=== PATIENT | female | born 1990 | race Caucasian/White ===

== ENCOUNTER 2018-05-01 06:24 | Emergency (ER) | payer BC ==
--- NOTE | 2018-05-01 07:06 | EDM.PDOC ---
ED HPI GENERAL MEDICAL PROBLEM - General Chief Complaint: Upper Extremity Injury/Pain Stated Complaint: RIGHT SHOULDER PAIN Time Seen by Provider: 05/01/18 07:06 Source of Information: Reports: Patient History Limitations: Reports: No Limitations - History of Present Illness INITIAL COMMENTS - FREE TEXT/NARRATIVE: History of present illness: []Patient sneezed 3 days ago and pulled a muscle in her right upper back then proceeded to go to the gym and workout. That worsen the pain aggressively worsened since it began. Patient states it hurts to breathe or move. She denies any fevers, chills, cough or shortness of breath. Review of systems: As per history of present illness and below otherwise all systems reviewed and negative. Past medical history: As per history of present illness and as reviewed below otherwise noncontributory. Surgical history: As per history of present illness and as reviewed below otherwise noncontributory. Social history: No reported history of drug or alcohol abuse. Family history: As per history of present illness and as reviewed below otherwise noncontributory. Physical exam: General: Well developed, well nourished in NAD HEENT: Atraumatic, normocephalic, pupils reactive, negative for conjunctival pallor or scleral icterus, mucous membranes moist, throat clear, neck supple, nontender, trachea midline. Lungs: Clear to auscultation, breath sounds equal bilaterally, patient is tender to palpation in the posterior upper chest/back over and inferior to right shoulder blade and with movement of her right upper extremity Heart: S1S2, regular, negative for clicks, rubs, or JVD. Abdomen: Soft, nondistended, nontender. Negative for masses or hepatosplenomegaly. Negative for costovertebral tenderness. Pelvis: Stable nontender. Genitourinary: Deferred. Rectal: Deferred. Extremities: Atraumatic, negative for cords or calf pain. Neurovascular unremarkable. Neuro: Awake, alert, oriented. Cranial nerves II through XII unremarkable. Cerebellum unremarkable. Motor and sensory unremarkable throughout. Exam nonfocal. Skin:warm and dry Diagnostics: Chest x-ray negative for infiltrate, pneumothorax or fracture Therapeutics: Offered Toradol she refused, Flexeril and tramadol given by mouth ED Course: Unremarkable Impression: Muscle spasm right upper back Prescriptions: Tramadol, Flexeril Plan: Use ice and heat for pain and meds as directed, follow up with primary care return if symptoms worsen or change. Definitive disposition and diagnosis as appropriate pending reevaluation and review of above. right upper back Pain Score (Numeric/FACES): 9 - Related Data Allergies Allergy/AdvReac Type Severity Reaction Status Date / Time allopurinol Allergy Itching Verified 05/01/18 06:43 oxycodone Allergy Hives Verified 05/01/18 06:43 Penicillins Allergy Anaphylactic Verified 05/01/18 06:43 Shock Home Meds: Home Meds Cyclobenzaprine [Flexeril] 10 mg PO BID PRN #12 tab 05/01/18 [Rx] Imatinib Mesylate [Gleevec] 400 mg PO DAILY 05/01/18 [History] traMADol HCl [Tramadol HCl] 50 mg PO Q6H PRN #16 tablet 05/01/18 [Rx] Past Medical History HEENT History: Reports: None Cardiovascular History: Reports: None Respiratory History: Reports: None Gastrointestinal History: Reports: None Genitourinary History: Reports: None [employer] History: Reports: Musculoskeletal History: Reports: None Neurological History: Reports: None Psychiatric History: Reports: Bipolar Endocrine/Metabolic History: Reports: None Hematologic History: Reports: Other (See Below) Other Hematologic History: Pernicous Anemia. CML Immunologic History: Reports: None Oncologic (Cancer) History: Reports: Leukemia Dermatologic History: Reports: None - Infectious Disease History Infectious Disease History: Reports: None - Past Surgical History Head Surgeries/Procedures: Reports: None Social & Family History - Family History Family Medical History: Noncontributory - Tobacco Use Smoking Status *Q: Never Smoker - Caffeine Use Caffeine Use: Reports: Coffee - Recreational Drug Use Recreational Drug Use: No Review of Systems - Review of Systems Review Of Systems: ROS reveals no pertinent complaints other than HPI. ED EXAM, GENERAL - Physical Exam Exam: See Below (See history of present illness) Course - Vital Signs Last Recorded V/S: Last Vital Signs Temp 97.8 F 05/01/18 06:44 Pulse 93 05/01/18 06:44 Resp 18 05/01/18 06:44 BP 109/74 05/01/18 06:44 Pulse Ox 98 05/01/18 06:44 - Orders/Labs/Meds Orders: Active Orders 24 hr Category Date Time Status Chest 2V [CR] Stat Exams 05/01/18 07:11 Taken Meds: Medications Discontinued Medications Generic Name Dose Route Start Last Admin Trade Name Freq PRN Reason Stop Dose Admin Cyclobenzaprine HCl 10 mg 05/01/18 07:12 05/01/18 07:54 Flexeril PO 05/01/18 07:13 10 mg ONETIME ONE Administration Ketorolac Tromethamine 60 mg 05/01/18 07:12 05/01/18 07:55 Toradol IM 05/01/18 07:13 Not Given ONETIME ONE Tramadol HCl 50 mg 05/01/18 08:16 05/01/18 08:20 Ultram PO 05/01/18 08:17 50 mg ONETIME ONE Administration Departure - Departure Time of Disposition: 08:22 Disposition: Home, Self-Care 01 Condition: Good Clinical Impression: Muscle spasm of right shoulder - Discharge Information *PRESCRIPTION DRUG MONITORING PROGRAM REVIEWED*: No *COPY OF PRESCRIPTION DRUG MONITORING REPORT IN PATIENT KRIS: No Prescriptions: Cyclobenzaprine [Flexeril] 10 mg PO BID PRN #12 tab PRN Reason: Pain traMADol HCl [Tramadol HCl] 50 mg PO Q6H PRN #16 tablet PRN Reason: Pain Referrals: PCP,None [Primary Care Provider] - Forms: ED Department Discharge Additional Instructions: The following information is given to patients seen in the emergency department who are being discharged to home. This information is to outline your options for follow-up care. We provide all patients seen in our emergency department with a follow-up referral. The need for follow-up, as well as the timing and circumstances, are variable depending upon the specifics of your emergency department visit. If you don't have a primary care physician on staff, we will provide you with a referral. We always advise you to contact your personal physician following an emergency department visit to inform them of the circumstance of the visit and for follow-up with them and/or the need for any referrals to a consulting specialist. The emergency department will also refer you to a specialist when appropriate. This referral assures that you have the opportunity for follow-up care with a specialist. All of these measure are taken in an effort to provide you with optimal care, which includes your follow-up. Under all circumstances we always encourage you to contact your private physician who remains a resource for coordinating your care. When calling for follow-up care, please make the office aware that this follow-up is from your recent emergency room visit. If for any reason you are refused follow-up, please contact the [facility] Emergency Department at and asked to speak to the emergency department charge nurse. Take tramadol Flexeril as directed, use heat and ice for comfort follow-up with primary care and return if symptoms worsen or change. [facility] [address] [place] [id number] - My Orders Last 24 Hours: My Active Orders 05/01/18 07:11 Chest 2V [CR] Stat - Assessment/Plan Last 24 Hours: My Active Orders 05/01/18 07:11 Chest 2V [CR] Stat
[2018-05-01] MEDS ORDERED: Cyclobenzaprine 10 MG Tab PO ONE (07:12)
[2018-05-01] MEDS: Ketorolac 60 MG/2 ML SDV IM ONE ×2 (07:54→07:55)
[2018-05-01] MEDS ORDERED: traMADol 50 MG Tab PO ONE (08:16)
--- NOTE | 2018-05-03 09:41 | CR ---
EXAM DATE: 05/01/18 PATIENT'S AGE: 27 Patient: REGINO SPENCE Facility: [place], [place] Site . Site : 1990 Study: XRay Chest [id number]/16/2018 7:54:32 AM Ordering Physician: Doctor Hill Final Report: INDICATION: Right upper back pain after forceful sneezing TECHNIQUE: PA and lateral chest x-ray. FINDINGS: Mild increased soft tissue density in the right paraspinal region from the suprahilar region to the mid heart which is nonspecific. This could be related to a vascular shadow but I cannot be certain of this. This is not have the typical appearance of residual thymic tissue. Heart size normal. Lungs clear without infiltrate or consolidation. No pneumothorax. Chest otherwise negative. Dictated by Malcom Arriola MD @ May 01 2018 8:13AM (Electronic Signature) Report Signed by Proxy. SHANIQUA
== END 2018-05-01 08:45 | disposition home or self-care (01) ==
LOC: MW.ED 06:24
DX: M62.830 Muscle spasm of back (principal); Z88.8 Allergy status to other drugs, medicaments and biological substances; Z88.0 Allergy status to penicillin
CPT/HCPCS: 71046; 99283; A9270; J1885

== ENCOUNTER 2018-05-10 15:15 | Emergency (ER) | payer BC ==
[2018-05-10] MEDS ORDERED: Ketorolac 60 MG/2 ML SDV IM ONE (15:37)
--- NOTE | 2018-05-10 15:44 | EDM.PDOC ---
ED HPI GENERAL MEDICAL PROBLEM - General Chief Complaint: Back Pain or Injury Stated Complaint: BACK PAIN Time Seen by Provider: 05/10/18 15:18 - History of Present Illness INITIAL COMMENTS - FREE TEXT/NARRATIVE: HISTORY AND PHYSICAL: History of present illness: The patient is a 27-year-old female who presents to the ER with upper right-sided back pain. The patient was seen in the ER on for muscle spasm. A x-ray was done that did not show any abnormalities of the heart, lungs or bones. She was sent home on tramadol and Flexeril. The patient stopped taking those medications on Wednesday05/04/18 and instead was seeing a chiropractor and taking ibuprofen. Last chiropractor session was yesterday. The patient woke up at 2 AM this morning with 10 and 10, sharp muscle spasm on the right thoracic muscles and decreased mobility in the right upper extremity due to pain. The patient has no shooting pains, numbness/ tingling to the extremities. [] Review of systems: As per history of present illness and below otherwise all systems reviewed and negative. Past medical history: As per history of present illness and as reviewed below otherwise noncontributory. Surgical history: As per history of present illness and as reviewed below otherwise noncontributory. Social history: No reported history of drug or alcohol abuse. Family history: As per history of present illness and as reviewed below otherwise noncontributory. Physical exam: HEENT: Atraumatic, normocephalic, pupils reactive, negative for conjunctival pallor or scleral icterus, mucous membranes moist, throat clear, neck supple, nontender, trachea midline. Lungs: Clear to auscultation, breath sounds equal bilaterally, chest nontender. Heart: S1S2, regular, negative for clicks, rubs, or JVD. Abdomen: Soft, nondistended, nontender. Negative for masses or hepatosplenomegaly. Negative for costovertebral tenderness. Pelvis: Stable nontender. Genitourinary: Deferred. Rectal: Deferred. Extremities: Atraumatic, negative for cords or calf pain. Neurovascular unremarkable. MSK- tenderness to the paraspinal muscles, right side T3-T6, strength testing elicits pain in the right upper back Neuro: Awake, alert, oriented. Cranial nerves II through XII unremarkable. Cerebellum unremarkable. Motor and sensory unremarkable throughout. Exam nonfocal. Diagnostics: [] Therapeutics: [IM Toradol] Impression: [right thoracic muscle spasm] Plan: [Patient's pain and mobility improved with toradol dose. Discharge home with flexeril and diclofenac. Patient should apply ice/heat to the area. Recommend establishing and follow with PCP .] Definitive disposition and diagnosis as appropriate pending reevaluation and review of above. Right Upper Back Pain Score (Numeric/FACES): 8 - Related Data Allergies Allergy/AdvReac Type Severity Reaction Status Date / Time allopurinol Allergy Itching Verified 05/10/18 15:28 oxycodone Allergy Hives Verified 05/10/18 15:28 Penicillins Allergy Anaphylactic Verified 05/10/18 15:28 Shock Home Meds: Home Meds Imatinib Mesylate [Gleevec] 400 mg PO DAILY 05/01/18 [History] Cyclobenzaprine [Flexeril] 10 mg PO TID PRN 7 Days #21 tab 05/10/18 [Rx] Diclofenac Sodium [Voltaren] 50 mg PO BID 7 Days #14 tab.ec 05/10/18 [Rx] Past Medical History HEENT History: Reports: None Cardiovascular History: Reports: None Respiratory History: Reports: None Gastrointestinal History: Reports: None Genitourinary History: Reports: None [employer] History: Reports: Musculoskeletal History: Reports: None Neurological History: Reports: None Psychiatric History: Reports: Bipolar, Other (See Below) Other Psychiatric History: cyclothymia Endocrine/Metabolic History: Reports: None Hematologic History: Reports: Other (See Below) Other Hematologic History: Pernicous Anemia. CML Immunologic History: Reports: None Oncologic (Cancer) History: Reports: Leukemia Dermatologic History: Reports: None - Infectious Disease History Infectious Disease History: Reports: None - Past Surgical History Head Surgeries/Procedures: Reports: None Social & Family History - Family History Family Medical History: Noncontributory - Tobacco Use Smoking Status *Q: Never Smoker Second Hand Smoke Exposure: No - Caffeine Use Caffeine Use: Reports: Coffee, Soda - Recreational Drug Use Recreational Drug Use: No ED ROS GENERAL - Review of Systems Review Of Systems: See Below (See dictation) ED EXAM, UPPER BACK/NECK PAIN - Physical Exam Exam: See Below (CC dictation) Course - Vital Signs Last Recorded V/S: Last Vital Signs Temp 97.8 F 05/10/18 15:22 Pulse 97 05/10/18 15:22 Resp 16 05/10/18 15:22 BP 108/73 05/10/18 15:22 Pulse Ox 96 05/10/18 15:22 - Orders/Labs/Meds Meds: Medications Discontinued Medications Generic Name Dose Route Start Last Admin Trade Name Freq PRN Reason Stop Dose Admin Ketorolac Tromethamine 60 mg 05/10/18 15:37 05/10/18 15:41 Toradol IM 05/10/18 15:38 60 mg ONETIME ONE Administration Departure - Departure Time of Disposition: 16:16 Disposition: Home, Self-Care 01 Clinical Impression: Muscle spasm of right shoulder - Discharge Information *PRESCRIPTION DRUG MONITORING PROGRAM REVIEWED*: No *COPY OF PRESCRIPTION DRUG MONITORING REPORT IN PATIENT KRIS: No Prescriptions: Cyclobenzaprine [Flexeril] 10 mg PO TID PRN 7 Days #21 tab PRN Reason: Muscle Spasm Diclofenac Sodium [Voltaren] 50 mg PO BID 7 Days #14 tab.ec Instructions: Muscle Cramps and Spasms, [id number] Referrals: PCP,None [Primary Care Provider] - Forms: ED Department Discharge Additional Instructions: My general discharge The following information is given to patients seen in the emergency department who are being discharged to home. This information is to outline your options for follow-up care. We provide all patients seen in our emergency department with a follow-up referral. The need for follow-up, as well as the timing and circumstances, are variable depending upon the specifics of your emergency department visit. If you don't have a primary care physician on staff, we will provide you with a referral. We always advise you to contact your personal physician following an emergency department visit to inform them of the circumstance of the visit and for follow-up with them and/or the need for any referrals to a consulting specialist. The emergency department will also refer you to a specialist when appropriate. This referral assures that you have the opportunity for follow-up care with a specialist. All of these measure are taken in an effort to provide you with optimal care, which includes your follow-up. Under all circumstances we always encourage you to contact your private physician who remains a resource for coordinating your care. When calling for follow-up care, please make the office aware that this follow-up is from your recent emergency room visit. If for any reason you are refused follow-up, please contact the [facility] Emergency Department at and asked to speak to the emergency department charge nurse. My Primary Care [facility] [address] [place] [id number] Use Diclofenac for inflammation and pain relief, use flexeril for muscle spasm. May apply heat/ice to the area. Establish and follow with PCP.
== END 2018-05-10 16:20 | disposition home or self-care (01) ==
LOC: MW.ED 15:15
DX: M62.830 Muscle spasm of back (principal); M62.838 Other muscle spasm; M25.511 Pain in right shoulder; Z88.1 Allergy status to other antibiotic agents; Z88.0 Allergy status to penicillin; Z79.899 Other long term (current) drug therapy
CPT/HCPCS: 96372; 99283; J1885

== ENCOUNTER 2020-11-07 03:40 | Emergency (ER) | payer BC ==
[2020-11-07] MEDS ORDERED: Sodium Chloride 0.9% 10 ML Syringe FLUSH PRN (04:01)
[2020-11-07] MEDS ORDERED: Ondansetron 4 MG/2 ML SDV IVPUSH ONE (04:01)
[2020-11-07] MEDS ORDERED: Sodium Chloride 0.9% 1,000 ML IV ONE (04:01)
[2020-11-07] MEDS ORDERED: Ketorolac 30 MG/ML SDV IVPUSH ONE (04:01)
[2020-11-07] MEDS ORDERED: Sodium Chloride 0.9% 2.5 ML Syringe FLUSH PRN (04:01)
--- NOTE | 2020-11-07 04:13 | EDM.PDOC ---
ED HPI GENERAL MEDICAL PROBLEM - General Chief Complaint: Abdominal Pain Stated Complaint: ABDOMINAL PAIN Time Seen by Provider: 11/07/20 03:52 - History of Present Illness INITIAL COMMENTS - FREE TEXT/NARRATIVE: HISTORY AND PHYSICAL: History of present illness: This is a 30-year-old female with a history significant for CML (has been in remission for approximately 10 years), presumed diagnosis of endometriosis, ovarian cyst, who presents ER today complaining of left lower quadrant abdominal pain that started approximately 2 PM yesterday afternoon. Patient denies any recent fevers, shakes, chills. Patient has any nausea, vomiting, diarrhea, dysuria, frequency, urgency, chest pain, shortness of breath. Patient has any melena or bright red blood per rectum. Patient reports her last menstrual period was approximately 1 week ago. Patient reports she is sexually active with one partner. Patient denies any vaginal discharge or vaginal bleeding. Patient reports she has been tolerating p.o. solids and liquids well. Patient reports that the pain is achy in nature and intermittent. Review of systems: As per history of present illness and below otherwise all systems reviewed and negative. Past medical history: As per history of present illness and as reviewed below otherwise noncontributory. Surgical history: As per history of present illness and as reviewed below otherwise noncontributory. Social history: No reported history of drug or alcohol abuse. Family history: As per history of present illness and as reviewed below otherwise noncontributory. Physical exam: This patient was seen and evaluated during the 2019 SARS-CoV-2 novel coronavirus pandemic period. Community viral transmission is ongoing at time of this encounter and the emergency department is operating under pandemic response procedures. Constitutional: Patient is oriented to person, place, and time. Appears well- developed and well-nourished. No distress. HEENT: Moist mucous membranes Head: Normocephalic and atraumatic Eyes: Right eye exhibits no discharge. Left eye exhibits no discharge. No scleral icterus Neck: Normal range of motion. No tracheal deviation present. Cardiovascular: Normal rate and regular rhythm. Pulmonary: Effort normal, no respiratory distress. Abd: Soft, nondistended, no rebound/guarding, no psoas or obturator signs, no tenderness at Mcberney's point, no Espinoza's sign. Pt does not present with an exam that would be consistent with an acute surgical abdomen at this time. Tenderness palpation left lower quadrant. Musculoskeletal: Normal range of motion Neurologic: Alert and oriented to person, place and time. Skin: [place], warm and dry. Psychiatric: Normal mood and affect. Behavior is normal. Judgment and thought content normal. Nursing note and vital signs have been reviewed Diagnostics: CBC, CMP, lipase, urinalysis, test, CT scan of the abdomen pelvis with IV contrast Therapeutics: Ketorolac NSS Assessment and plan: This is a 30-year-old female who presents ER today complaining of left lower quadrant abdominal pain. Patient does have a history of a left ovarian cyst that was diagnosed during her work-up of endometriosis. Patient reports that she has a presumed diagnosis of endometriosis but has not had an endoscopy as of yet. Patient will have labs drawn as well as CT scan of her abdomen pelvis and will be reevaluated after pain medicines have been administered. 5:41 AM: Patient was reevaluated reports that her pain is significantly improved. Patient CT scan was unremarkable. Patient has a cyst noted in the right ovary but no abnormalities identified in the left side. Patient reports that she was told that she had cysts on both sides in the recent past. Etiology of the patient's pain is unclear. Patient be discharged home as at this time she does not present with an acute surgical abdomen. Patient will be given a prescription for ibuprofen and instructions to follow-up with her doctor. Reassessment at the time of disposition demonstrates that the patient is in no acute distress. The patient has remained stable throughout the entire ED visit and is without objective evidence for acute process requiring urgent intervention or hospitalization. The patient is stable for discharge, counseling is provided as documented above, discussed symptomatic treatment and specific conditions for return. I have spoken with the patient/caregiver and discussed todays findings, in addition to providing specific details for the plan of care. Questions are answered and there is agreement with the plan. Definitive disposition and diagnosis as appropriate pending reevaluation and review of above. left abdomen Pain Score (Numeric/FACES): 8 - Related Data Allergies Allergy/AdvReac Type Severity Reaction Status Date / Time allopurinol Allergy Itching Verified 11/07/20 03:49 oxycodone Allergy Hives Verified 11/07/20 03:49 Penicillins Allergy Anaphylactic Verified 11/07/20 03:49 Shock Home Meds: Home Meds Imatinib Mesylate [Gleevec] 400 mg PO DAILY 05/01/18 [History] Ibuprofen 600 mg PO Q6HR PRN #30 tablet 11/07/20 [Rx] Past Medical History HEENT History: Reports: None Cardiovascular History: Reports: None Respiratory History: Reports: None Gastrointestinal History: Reports: None Genitourinary History: Reports: None HARBOR TUG CAPTAIN History: Reports: Other HARBOR TUG CAPTAIN History: ovarian cyst Musculoskeletal History: Reports: None Neurological History: Reports: None Psychiatric History: Reports: Bipolar, Other (See Below) Other Psychiatric History: cyclothymia Endocrine/Metabolic History: Reports: None Hematologic History: Reports: Other (See Below) Other Hematologic History: Pernicous Anemia. CML Immunologic History: Reports: None Oncologic (Cancer) History: Reports: Leukemia Dermatologic History: Reports: None - Infectious Disease History Infectious Disease History: Reports: None - Past Surgical History Head Surgeries/Procedures: Reports: None Other HEENT Surgeries/Procedures: tonsil surgery for draining Social & Family History - Family History Family Medical History: No Pertinent Family History - Tobacco Use Tobacco Use Status *Q: Never Tobacco User - Caffeine Use Caffeine Use: Reports: Coffee, Soda - Recreational Drug Use Recreational Drug Use: No ED ROS GENERAL - Review of Systems Review Of Systems: See Below ED EXAM, GENERAL - Physical Exam Exam: See Below Course - Vital Signs Last Recorded V/S: Last Vital Signs Temp 96.6 F L 11/07/20 03:50 Pulse 62 11/07/20 04:45 Resp 18 11/07/20 03:50 BP 81/49 L 11/07/20 04:45 Pulse Ox 100 11/07/20 04:45 - Orders/Labs/Meds Orders: Active Orders 24 hr Category Date Time Status Sodium Chloride 0.9% [Saline Flush] Med 11/07/20 04:01 Active 10 ml FLUSH ASDIRECTED PRN Sodium Chloride 0.9% [Saline Flush] Med 11/07/20 04:01 Active 2.5 ml FLUSH ASDIRECTED PRN Saline Lock Insert [OM.PC] Stat Oth 11/07/20 04:01 Ordered Medication Orders Sodium Chloride (Sodium Chloride 0.9% 10 Ml Syringe) 10 ml FLUSH ASDIRECTED PRN PRN Reason: Keep Vein Open Last Admin: 11/07/20 04:06 Dose: 10 ml Documented by: MARYAM Sodium Chloride (Sodium Chloride 0.9% 2.5 Ml Syringe) 2.5 ml FLUSH ASDIRECTED PRN PRN Reason: Keep Vein Open Last Admin: 11/07/20 04:06 Dose: 2.5 ml Documented by: MARYAM Labs: Laboratory Tests 11/07/20 11/07/20 11/07/20 Range/Units 04:05 04:05 04:05 WBC 6.80 (4.0-11.0) K/uL RBC 3.60 L (4.30-5.90) M/uL Hgb 11.5 L (12.0-16.0) g/dL Hct 33.9 L (36.0-46.0) % MCV 94.2 (80.0-98.0) fL MCH 31.9 (27.0-32.0) pg MCHC 33.9 (31.0-37.0) g/dL RDW Std Deviation 49.1 (28.0-62.0) fl RDW Coeff of Link 14 (11.0-15.0) % Plt Count 365 (150-400) K/uL MPV 9.70 (7.40-12.00) fL Neut % (Auto) 37.4 L (48.0-80.0) % Lymph % (Auto) 46.0 H (16.0-40.0) % Vigo % (Auto) 7.5 (0.0-15.0) % Eos % (Auto) 8.8 H (0.0-7.0) % Baso % (Auto) 0.3 (0.0-1.5) % Neut # (Auto) 2.5 (1.4-5.7) K/uL Lymph # (Auto) 3.1 H (0.6-2.4) K/uL Vigo # (Auto) 0.5 (0.0-0.8) K/uL Eos # (Auto) 0.6 (0.0-0.7) K/uL Baso # (Auto) 0.0 (0.0-0.1) K/uL Nucleated RBC % 0.0 /100WBC Nucleated RBCs # 0 K/uL Sodium 138 (136-145) mmol/L Potassium 3.5 (3.5-5.1) mmol/L Chloride 104 (98-107) mmol/L Carbon Dioxide 24.1 (21.0-32.0) mmol/L BUN 9 (7.0-18.0) mg/dL Creatinine 0.9 (0.6-1.0) mg/dL Est Cr Clr Drug Dosing 88.88 mL/min Estimated GFR (MDRD) > 60.0 ml/min Glucose 122 H (74-106) mg/dL Calcium 8.0 L (8.5-10.1) mg/dL Total Bilirubin 0.4 (0.2-1.0) mg/dL AST 13 L (15-37) IU/L ALT 19 (14-63) IU/L Alkaline Phosphatase 43 L (46-116) U/L Total Protein 6.5 (6.4-8.2) g/dL Albumin 3.5 (3.4-5.0) g/dL Globulin 3.0 (2.6-4.0) g/dL Albumin/Globulin Ratio 1.2 (0.9-1.6) Lipase 74 (73-393) U/L HCG, Qual NEGATIVE (NEG) Urine Color Urine Appearance Urine pH (5.0-8.0) Ur Specific Dunbar (1.001-1.035) Urine Protein (NEGATIVE) mg/dL Urine Glucose (UA) (NEGATIVE) mg/dL Urine Ketones (NEGATIVE) mg/dL Urine Occult Blood (NEGATIVE) Urine Nitrite (NEGATIVE) Urine Bilirubin (NEGATIVE) Urine Urobilinogen (<2.0) EU/dL Ur Leukocyte Esterase (NEGATIVE) 11/07/20 Range/Units 04:55 WBC (4.0-11.0) K/uL RBC (4.30-5.90) M/uL Hgb (12.0-16.0) g/dL Hct (36.0-46.0) % MCV (80.0-98.0) fL MCH (27.0-32.0) pg MCHC (31.0-37.0) g/dL RDW Std Deviation (28.0-62.0) fl RDW Coeff of Link (11.0-15.0) % Plt Count (150-400) K/uL MPV (7.40-12.00) fL Neut % (Auto) (48.0-80.0) % Lymph % (Auto) (16.0-40.0) % Vigo % (Auto) (0.0-15.0) % Eos % (Auto) (0.0-7.0) % Baso % (Auto) (0.0-1.5) % Neut # (Auto) (1.4-5.7) K/uL Lymph # (Auto) (0.6-2.4) K/uL Vigo # (Auto) (0.0-0.8) K/uL Eos # (Auto) (0.0-0.7) K/uL Baso # (Auto) (0.0-0.1) K/uL Nucleated RBC % /100WBC Nucleated RBCs # K/uL Sodium (136-145) mmol/L Potassium (3.5-5.1) mmol/L Chloride (98-107) mmol/L Carbon Dioxide (21.0-32.0) mmol/L BUN (7.0-18.0) mg/dL Creatinine (0.6-1.0) mg/dL Est Cr Clr Drug Dosing mL/min Estimated GFR (MDRD) ml/min Glucose (74-106) mg/dL Calcium (8.5-10.1) mg/dL Total Bilirubin (0.2-1.0) mg/dL AST (15-37) IU/L ALT (14-63) IU/L Alkaline Phosphatase (46-116) U/L Total Protein (6.4-8.2) g/dL Albumin (3.4-5.0) g/dL Globulin (2.6-4.0) g/dL Albumin/Globulin Ratio (0.9-1.6) Lipase (73-393) U/L HCG, Qual (NEG) Urine Color YELLOW Urine Appearance CLEAR Urine pH 6.0 (5.0-8.0) Ur Specific [place] 1.015 (1.001-1.035) Urine Protein NEGATIVE (NEGATIVE) mg/dL Urine Glucose (UA) NEGATIVE (NEGATIVE) mg/dL Urine Ketones NEGATIVE (NEGATIVE) mg/dL Urine Occult Blood NEGATIVE (NEGATIVE) Urine Nitrite NEGATIVE (NEGATIVE) Urine Bilirubin NEGATIVE (NEGATIVE) Urine Urobilinogen 0.2 (<2.0) EU/dL Ur Leukocyte Esterase NEGATIVE (NEGATIVE) Meds: Medications Generic Name Dose Route Start Last Admin Trade Name Freq PRN Reason Stop Dose Admin Sodium Chloride 10 ml 11/07/20 04:01 11/07/20 04:06 Sodium Chloride 0.9% 10 Ml Syringe FLUSH 10 ml ASDIRECTED PRN Administration Keep Vein Open Sodium Chloride 2.5 ml 11/07/20 04:01 11/07/20 04:06 Sodium Chloride 0.9% 2.5 Ml Syringe FLUSH 2.5 ml ASDIRECTED PRN Administration Keep Vein Open Discontinued Medications Generic Name Dose Route Start Last Admin Trade Name Eber PRN Reason Stop Dose Admin Sodium Chloride 1,000 mls @ 999 mls/hr 11/07/20 04:01 11/07/20 04:06 Normal Saline IV 11/07/20 05:01 999 mls/hr .Bolus ONE Administration Iopamidol 100 ml 11/07/20 05:21 11/07/20 05:23 Iopamidol 755 Mg/Ml 500 Ml Multipack Bottle IVPUSH 11/07/20 05:22 100 ml ONETIME STA Administration Ketorolac Tromethamine 30 mg 11/07/20 04:01 11/07/20 04:06 Ketorolac 30 Mg/Ml Sdv IVPUSH 11/07/20 04:02 30 mg ONETIME ONE Administration Ondansetron HCl 4 mg 11/07/20 04:01 11/07/20 04:06 Ondansetron 4 Mg/2 Ml Sdv IVPUSH 11/07/20 04:02 4 mg ONETIME ONE Administration Departure - Departure Time of Disposition: 05:42 Disposition: Home, Self-Care 01 Condition: Good Clinical Impression: Pelvic pain Abdominal pain Qualifiers: Abdominal location: left lower quadrant Qualified Code(s): R10.32 - Left lower quadrant pain - Discharge Information Instructions: Pelvic Pain, Female, Abdominal Pain, Adult Referrals: Pretty Stinson DO [Primary Care Provider] - Forms: ED Department Discharge Additional Instructions: Your seen and evaluated in the ER today secondary to pain to your left lower abdomen. Your blood tests and CT scans are all within normal limits. The etiology of your pain at this time is not completely clear. You will be given a prescription for ibuprofen to assist you with your pain. Please make an appointment to see your family doctor in the next 1 to 2 days to be reevaluated. Return to the ER sooner if your pain worsens or if you have any new or concerning symptoms. The following information is given to patients seen in the emergency department who are being discharged to home. This information is to outline your options for follow-up care. We provide all patients seen in our emergency department with a follow-up referral. The need for follow-up, as well as the timing and circumstances, are variable depending upon the specifics of your emergency department visit. If you don't have a primary care physician on staff, we will provide you with a referral. We always advise you to contact your personal physician following an emergency department visit to inform them of the circumstance of the visit and for follow-up with them and/or the need for any referrals to a consulting specialist. The emergency department will also refer you to a specialist when appropriate. This referral assures that you have the opportunity for follow-up care with a specialist. All of these measure are taken in an effort to provide you with optimal care, which includes your follow-up. Under all circumstances we always encourage you to contact your private physician who remains a resource for coordinating your care. When calling for follow-up care, please make the office aware that this follow-up is from your recent emergency room visit. If for any reason you are refused follow-up, please contact the [facility] Emergency Department at and asked to speak to the emergency department charge nurse. [facility] [address] [place] [id number] [address] Sepsis Event Note (ED) - Evaluation Sepsis Screening Result: No Definite Risk - Focused Exam Vital Signs: Vital Signs Temp Pulse Resp BP Pulse Ox 11/07/20 04:45 62 81/49 L 100 11/07/20 04:13 75 97/68 100 11/07/20 03:50 96.6 F L 99 18 108/67 96 - My Orders Last 24 Hours: My Active Orders 11/07/20 04:01 Sodium Chloride 0.9% [Saline Flush] 10 ml FLUSH ASDIRECTED PRN Sodium Chloride 0.9% [Saline Flush] 2.5 ml FLUSH ASDIRECTED PRN Saline Lock Insert [OM.PC] Stat - Assessment/Plan Last 24 Hours: My Active Orders 11/07/20 04:01 Sodium Chloride 0.9% [Saline Flush] 10 ml FLUSH ASDIRECTED PRN Sodium Chloride 0.9% [Saline Flush] 2.5 ml FLUSH ASDIRECTED PRN Saline Lock Insert [OM.PC] Stat
[2020-11-07 04:33] LABS: BLOOD UREA NITROGEN,BUN 9 mg/dL (7.0-18.0); CHLORIDE,CL 104 mmol/L (98-107); GLUCOSE RANDOM 122 mg/dL (74-106); LIPASE 74 U/L (73-393); POTASSIUM,K 3.5 mmol/L (3.5-5.1); SODIUM,NA 138 mmol/L (136-145)
[2020-11-07 04:38] LABS: CARBON DIOXIDE,CO2 24.1 mmol/L (21.0-32.0)
[2020-11-07] MEDS ORDERED: Iopamidol 755 MG/ML 500 ML Multipack Bottle IVPUSH STA (05:21)
--- NOTE | 2020-11-07 05:36 | CT ---
INDICATION: Left lower quadrant abdominal pain TECHNIQUE: CT Abdomen and pelvis with i.v. contrast. Coronal and sagittal reformats were obtained. CONTRAST: 100 mL Isovue 370 COMPARISON: None FINDINGS: Lower chest: Unremarkable. Liver: Unremarkable. Spleen: Unremarkable. Pancreas: Unremarkable. Gallbladder: Unremarkable. Kidney: There is a small cortical cyst measuring 7 mm present in the right renal lower pole. Adrenal: Unremarkable. Bowel: A moderate amount of stool is present within the cecum and ascending colon. The appendix cannot be identified but there are no inflammatory changes noted in the right lower quadrant. Vascular: Unremarkable. Lymph: Unremarkable. Peritoneum: Unremarkable. No pneumoperitoneum is seen. No significant ascites is noted. Pelvis: There is a 1.7 cm cyst or follicle present within the right ovary. Soft tissue: Unremarkable. Bone: Unremarkable for age. IMPRESSION: 1. Unremarkable with no CT correlate for the patient`s symptoms seen. Dictated by Santhosh Alberts MD @ 11/07/2020 5:34:42 AM Please note that all CT scans at this facility use dose modulation, iterative reconstruction, and/or weight-based dosing when appropriate to reduce radiation dose to as low as reasonably achievable. Dictated by: Santhosh Alberts MD @ 11/07/2020 05:35:21 (Electronically Signed)
== END 2020-11-07 05:54 | disposition home or self-care (01) ==
LOC: MW.ED 03:40
DX: R10.32 Left lower quadrant pain (principal); R10.2 Pelvic and perineal pain; Z88.0 Allergy status to penicillin; Z88.8 Allergy status to other drugs, medicaments and biological substances; Z79.899 Other long term (current) drug therapy
CPT/HCPCS: 36415; 74177; 80053; 81003; 83690; 84703; 85025; 96374; 96375; 99284; J1885; J2405; J7030; Q9967; 99283

== ENCOUNTER 2021-04-18 14:53 | Emergency (ER) | payer BC ==
--- NOTE | 2021-04-18 17:01 | EDM.PDOC ---
ED HPI GENERAL MEDICAL PROBLEM - General Chief Complaint: Lower Extremity Injury/Pain Stated Complaint: STEPPED IN HOLE AND POSS FRACTURED ANKLE Time Seen by Provider: 04/18/21 16:55 Source of Information: Reports: Patient History Limitations: Reports: No Limitations - History of Present Illness INITIAL COMMENTS - FREE TEXT/NARRATIVE: 30-year-old female past medical history CML presents for left ankle injury. Patient stepped on a primary dog hole and suffered an inversion injury of the left ankle. She was able to walk on it afterwards but did feel something pop and has since had difficulty with ambulation secondary to pain. She denies any other injuries. She does note a history of old fracture in right foot. Left ankle Pain Score (Numeric/FACES): 4 - Related Data Allergies Allergy/AdvReac Type Severity Reaction Status Date / Time allopurinol Allergy Itching Verified 04/18/21 16:59 oxycodone Allergy Hives Verified 04/18/21 16:59 Penicillins Allergy Anaphylactic Verified 04/18/21 16:59 Shock Home Meds: Home Meds Imatinib Mesylate [Gleevec] 400 mg PO DAILY 05/01/18 [History] Ibuprofen 600 mg PO Q6HR PRN #30 tablet 11/07/20 [Rx] Ibuprofen [Motrin] 600 mg PO Q6H PRN #20 tab 04/18/21 [Rx] Past Medical History HEENT History: Reports: None Cardiovascular History: Reports: None Respiratory History: Reports: None Gastrointestinal History: Reports: None Genitourinary History: Reports: None ARCHITECTURAL DRAFTSPERSON History: Reports: Other ARCHITECTURAL DRAFTSPERSON History: ovarian cyst Musculoskeletal History: Reports: None Neurological History: Reports: None Psychiatric History: Reports: Bipolar, Other (See Below) Other Psychiatric History: cyclothymia Endocrine/Metabolic History: Reports: None Hematologic History: Reports: Other (See Below) Other Hematologic History: Pernicous Anemia. CML Immunologic History: Reports: None Oncologic (Cancer) History: Reports: Leukemia Dermatologic History: Reports: None - Infectious Disease History Infectious Disease History: Reports: None - Past Surgical History Head Surgeries/Procedures: Reports: None Other HEENT Surgeries/Procedures: tonsil surgery for draining Social & Family History - Family History Family Medical History: No Pertinent Family History - Caffeine Use Caffeine Use: Reports: Coffee, Soda Review of Systems - Review of Systems Review Of Systems: Comprehensive ROS is negative, except as noted in HPI. ED EXAM, GENERAL - Physical Exam Exam: See Below Exam Limited By: No Limitations General Appearance: Alert, WD/WN, No Apparent Distress Ears: Hearing Grossly Normal Throat/Mouth: Normal Voice, No Airway Compromise Head: Atraumatic, Normocephalic Neck: Normal Inspection Respiratory/Chest: No Respiratory Distress, No Accessory Muscle Use Cardiovascular: Normal Peripheral Pulses Extremities: Other (swelling of L ankle; TTP of medial and lateral malleolus; no tibial TTP; intact sensation) Neurological: Alert Psychiatric: Normal Affect, Normal Mood Skin Exam: Warm, Dry, Intact, Normal Color Course - Vital Signs Last Recorded V/S: Last Vital Signs Temp 97.8 F 04/18/21 16:59 Pulse 72 04/18/21 16:59 Resp 18 04/18/21 16:59 BP 107/62 04/18/21 16:59 Pulse Ox 98 04/18/21 16:59 - Re-Assessments/Exams Free Text/Narrative Re-Assessment/Exam: 04/18/21 17:01 We will get x-ray imaging of the ankle to ensure no fracture. 04/18/21 17:54 X-ray imaging of the ankle is unremarkable. Will Shravan bandage and discharged with prescription for analgesia. Departure - Departure Time of Disposition: 17:55 Disposition: Home, Self-Care 01 Condition: Good Clinical Impression: Ankle sprain Qualifiers: Encounter type: initial encounter Involved ligament of ankle: unspecified ligament Laterality: left Qualified Code(s): S93.402A - Sprain of unspecified ligament of left ankle, initial encounter - Discharge Information Prescriptions: Ibuprofen [Motrin] 600 mg PO Q6H PRN #20 tab PRN Reason: Pain Instructions: Ankle Sprain Referrals: Pretty Stinson DO [Primary Care Provider] - Forms: ED Department Discharge Additional Instructions: The following information is given to patients seen in the emergency department who are being discharged to home. This information is to outline your options for follow-up care. We provide all patients seen in our emergency department with a follow-up referral. The need for follow-up, as well as the timing and circumstances, are variable depending upon the specifics of your emergency department visit. If you don't have a primary care physician on staff, we will provide you with a referral. We always advise you to contact your personal physician following an emergency department visit to inform them of the circumstance of the visit and for follow-up with them and/or the need for any referrals to a consulting specialist. The emergency department will also refer you to a specialist when appropriate. This referral assures that you have the opportunity for follow-up care with a specialist. All of these measure are taken in an effort to provide you with optimal care, which includes your follow-up. Under all circumstances we always encourage you to contact your private physician who remains a resource for coordinating your care. When calling for follow-up care, please make the office aware that this follow-up is from your recent emergency room visit. If for any reason you are refused follow-up, please contact the [facility] Emergency Department at and asked to speak to the emergency department charge nurse. Please follow up with your primary care physician. If you do not have a primary care physician, see below: [facility] [address] [place] [id number] [facility] [address] [place] [address] [facility] [address] [place] [id number] Sepsis Event Note (ED) - Focused Exam Vital Signs: Vital Signs Temp Pulse Resp BP Pulse Ox 04/18/21 16:59 97.8 F 72 18 107/62 98
--- NOTE | 2021-04-18 17:47 | CR ---
INDICATION: INVERSION INJURY LEFT ANKLE No fracture, dislocation, or destructive lesion of bone is seen. No arthritic changes or soft tissue abnormalities are identified. IMPRESSION: Negative left ankle radiographs. NORBERTO HOFF MD [facility] Dictated by: Vincenzo Hoff MD @ 04/18/2021 17:45:59 (Electronically Signed)
== END 2021-04-18 18:19 | disposition home or self-care (01) ==
LOC: MW.ED 14:53
DX: S93.402A Sprain of unspecified ligament of left ankle, initial encounter (principal); Z88.8 Allergy status to other drugs, medicaments and biological substances; Z88.5 Allergy status to narcotic agent; Z88.0 Allergy status to penicillin; X50.1XXA Overexertion from prolonged static or awkward postures, initial encounter
CPT/HCPCS: 73610-26-LT; 73610-LT; 99283-25

== ENCOUNTER 2023-01-26 08:32 | Emergency (ER) | payer BC ==
[2023-01-26] MEDS ORDERED: Ketorolac 30 MG/ML SDV IVPUSH ONE (09:23)
[2023-01-26 09:46] LABS: BASOPHILS ABSOLUTE AUTO 0.1 K/uL (0.0-0.1); EOSINOPHILS ABSOLUTE AUTO 0.5 K/uL (0.0-0.7); HEMATOCRIT 34.4 % (36.0-46.0); HEMOGLOBIN 11.7 g/dL (12.0-16.0); LYMPHOCYTES ABSOLUTE AUTO 1.7 K/uL (0.6-2.4); LYMPHOCYTES PERCENT AUTO 34.6 % (16.0-40.0); MEAN CORPUSCULAR VOLUME 91.2 fL (80.0-98.0); MONOCYTES ABSOLUTE AUTO 0.5 K/uL (0.0-0.8); NEUTROPHILS ABSOLUTE AUTO 2.1 K/uL (1.4-5.7); NEUTROPHILS PERCENT AUTO 43.4 % (48.0-80.0); NRBC ABSOLUTE 0 K/uL; PLATELET COUNT,PLT 251 K/uL (150-400); RED BLOOD CELL COUNT 3.77 M/uL (4.30-5.90); WHITE BLOOD CELL COUNT,WBC 4.91 K/uL (4.0-11.0)
[2023-01-26 10:09] LABS: A/G RATIO 1.1 (0.9-1.6); ALBUMIN 3.5 g/dL (3.4-5.0); BILIRUBIN TOTAL 0.3 mg/dL (0.2-1.0); CALCIUM 8.2 mg/dL (8.5-10.1); CREATININE 0.8 mg/dL (0.6-1.0); EST CRCL DRUG DOSING (CG) 98.18 mL/min; POTASSIUM,K 4.1 mmol/L (3.5-5.1); PROTEIN TOTAL,TP 6.6 g/dL (6.4-8.2)
[2023-01-26 10:40] LABS: APPEARANCE,URINE CLEAR; BILIRUBIN,URINE NEGATIVE (NEGATIVE); COLOR,URINE YELLOW; GLUCOSE,URINE NEGATIVE (NEGATIVE); KETONES,URINE NEGATIVE (NEGATIVE); LEUKOCYTE ESTERASE,URINE NEGATIVE (NEGATIVE); NITRITE,URINE NEGATIVE (NEGATIVE); OCCULT BLOOD,URINE NEGATIVE (NEGATIVE); PROTEIN,URINE NEGATIVE (NEGATIVE); UROBILINOGEN,URINE 0.2 EU/dL (<2.0)
[2023-01-26] MEDS ORDERED: Iopamidol 755 MG/ML 500 ML Multipack Bottle IVPUSH ONE (11:05)
[2023-01-26] MEDS ORDERED: Morphine 4 MG/ML Syringe IVPUSH ONE (11:26)
[2023-01-26] MEDS ORDERED: Naloxone 0.4 MG/ML SDV IVPUSH PRN (11:26)
== END 2023-01-26 12:28 | disposition home or self-care (01) ==
LOC: MW.ED 08:32
DX: R10.31 Right lower quadrant pain (principal); Z88.5 Allergy status to narcotic agent; Z88.8 Allergy status to other drugs, medicaments and biological substances; Z88.0 Allergy status to penicillin
CPT/HCPCS: 36415; 74177; 80053; 81003; 84703; 85025; 96374; 96375; 99284; J1885; J2270; Q9967

== ENCOUNTER 2024-03-09 17:59 | Emergency (ER) | payer BC | END 2024-03-09 20:19 | disposition home or self-care (01) | LOC: MW.ED 17:59 | DX: S82.64XA Nondisplaced fracture of lateral malleolus of right fibula, initial encounter for closed fracture (principal); Z88.0 Allergy status to penicillin; Z88.8 Allergy status to other drugs, medicaments and biological substances; Z79.899 Other long term (current) drug therapy; Z75.8 Other problems related to medical facilities and other health care; X50.9XXA Other and unspecified overexertion or strenuous movements or postures, initial encounter | CPT/HCPCS: 29505; 73610-26-RT; 73610-RT; 73630-26-RT; 73630-RT; 99283; 99283-25 ==

== ENCOUNTER 2025-02-03 20:49 | Emergency (ER) | payer BC ==
[2025-02-03] MEDS ORDERED: Sodium Chloride 0.9% 2.5 ML Syringe FLUSH PRN (21:19)
[2025-02-03] MEDS ORDERED: Sodium Chloride 0.9% 10 ML Syringe FLUSH PRN (21:19)
[2025-02-03] MEDS ORDERED: Sodium Chloride 0.9% 20 ML SDV IV PRN (21:19)
[2025-02-03] MEDS: Famotidine 20 MG/2 ML SDV IVPUSH ONE (21:32)
[2025-02-03] MEDS: methylPREDNISolone Sodium Succinate 125 MG/2 ML SDV IVPUSH ONE (21:32)
[2025-02-03] MEDS: diphenhydrAMINE 50 MG/ML SDV IVPUSH ONE (21:32)
== END 2025-02-03 22:29 | disposition home or self-care (01) ==
LOC: MW.ED 20:49
DX: T78.40XA Allergy, unspecified, initial encounter (principal); Z88.0 Allergy status to penicillin; Z88.8 Allergy status to other drugs, medicaments and biological substances; Z88.5 Allergy status to narcotic agent
CPT/HCPCS: 96374; 96375; 99283; J1200; J2919